=== PATIENT | male | born 2000 | race American Indian/Alaskan Native ===

== ENCOUNTER 2020-01-28 21:51 | Emergency (ER) | payer OTHER ==
[2020-01-28 22:32] VITALS: BP 141/96
--- NOTE | 2020-01-28 22:47 | Emergency Department Report ---
Chief Complaint: Urogenital-Male Stated Complaint: ITCHY IN PRIVATE AREA Time Seen by Provider: 01/28/20 22:42 - HPI History of Present Illness: penile discharge clear yellow 3 days, pt advised , [address] [place] [address] ISB[place] \\ mbja follow up with Health department in am. pt has decided to leave and seek tx in a more appropriate care facility. - ROS Review of Systems: pt with nad - Exam Vital Signs: Vital Signs 01/28/20 21:58 Temperature 98.3 F Pulse Rate 80 Respiratory 20 Rate Blood Pressure 141/96 O2 Sat by Pulse 98 Oximetry Physical Exam: pt is a/o x 3, appears well and nontoxic, denies voiding problem, no hematuria, no fever or chills. no n/v no abd pain MSE screening note: Focused history and physical exam performed. Due to findings the following was ordered: ED Medical Decision Making - Medical Decision Making MSE completed, pt does not have an emergency medical condition, will follow up with health department in am. ED Disposition for MSE Clinical Impression: STI (sexually transmitted infection) Disposition: Z-07 MED SCREENING EXAM-LEFT Is pt being admited?: No Does the pt Need Aspirin: No Additional Instructions: [facility] , [address] [place] [address], [employer] \\ Referrals: [facility] [Outside] - 3-5 Days
== END 2020-01-28 23:02 | disposition left against medical advice (07) ==
LOC: ED 21:51
DX: A64 Unspecified sexually transmitted disease (principal)
CPT/HCPCS: 99282